=== PATIENT | female | born 1955 | race African-American/Black ===

== ENCOUNTER 2017-04-11 23:36 | Emergency (ER) | payer SELFPAY ==
[~2017-04-11] VITALS: Ht 170.2 cm; Wt 95.0 kg
[2017-04-11 23:39] VITALS: BP 127/87
[2017-04-12] MEDS ORDERED: HYDROCODONE/ACETAMINOPHEN 10/325MG TABLET PO ONE (00:45)
[2017-04-12] MEDS ORDERED: GABAPENTIN 400MG CAPSULE PO ONE (00:45)
[2017-04-12] MEDS ORDERED: CYCLOBENZAPRINE 10MG TABLET PO ONE (00:45)
== END 2017-04-12 01:35 | disposition home or self-care (01) ==
LOC: ER 23:45
DX: M79.671 Pain in right foot (principal); G89.29 Other chronic pain; E11.9 Type 2 diabetes mellitus without complications; I10 Essential (primary) hypertension
CPT/HCPCS: 99284